=== PATIENT | male | born 1980 | race Caucasian/White ===

== ENCOUNTER 2018-08-05 19:29 | Observation (INO) ==
--- NOTE | 2018-08-05 19:48 | ED ---
HPI General Chief complaint: Altered Mental Status Stated complaint: Confused - ETOH Time Seen by Provider: 08/05/18 19:45 History of Present Illness HPI narrative: 38-year-old male is brought to the emergency department by EMS for evaluation of altered mental status and hypoglycemia. Per EMS report [place] Per EMS report the patient's glucose was 57 on arrival and he was administered 25 g of dextrose which brought his sugar up to 215. Per EMS report the patient became more awake after the dextrose. The patient does smell of mint. He is arousable but drowsy. He admits to drinking a large amount of Listerine earlier today. He complains of pain "all over." He denies any falls or head trauma. He states that he smokes cigarettes but denies any drug use. He denies any chest pain, shortness of breath, belly pain, nausea, vomiting, diarrhea. No other complaints. Related Data Home Medications Medication Instructions Recorded Confirmed No Known Home Medications 08/05/18 08/05/18 Allergies Allergy/AdvReac Type Severity Reaction Status Date / Time No Known Allergies Allergy Verified 08/05/18 19:42 Review of Systems ROS: all other systems reviewed are negative [facility] Medical History Medical History Bipolar 1 disorder (Acute) Bleeding hemorrhoids (Acute) Esophageal varices (Acute) Schizophrenia (Acute) Surgical History Surgical History No history of previous surgery (Acute) Family History Family History Other Family history non-contributory Social History Social History Substance History: Active Abuse Second Hand Smoke Exposure: Yes Smoking Status: Current every day smoker Tobacco Type: Cigarettes How Often Do You Have a Drink Containing Alcohol: 4 or more times a week Recent Travel in [place] within the Last 8 Weeks: No Recent Out of Country Travel within the Last 8 Weeks: No Immunization History Tetanus Immunization: Unsure Exam Narrative Exam Narrative: GENERAL: Well-nourished and well-developed male patient in no acute distress. SKIN: Warm and dry without any obvious rashes or lesions. HEAD: Normocephalic and atraumatic. EYES: No injection, drainage, or hyphema noted. PERRLA. EOMI. ENT: No nasal drainage noted. Oropharynx is clear and the TMs are normal with good landmarks. NECK: Supple and the trachea is midline. No obviou deformities or midline tenderness to palpation. CARDIOVASCULAR: Regular rate and rhythm. RESPIRATORY: Breath sounds are equal bilaterally with no accessory muscle use, wheezing, rhonchi, or crackles. GASTROINTESTINAL: Abdomen is soft, non-tender, and nondistended. MUSCULOSKELETAL: No obvious deformities, swelling, cyanosis, or ecchymosis is present throughout the upper and lower extremities. Patient has full range of motion without any signs of neurovascular compromise. Distal pulses are 2+ throughout. NEUROLOGICAL: Drowsy but arousable, and oriented to person and place only. Slurred speech. Cranial nerves are grossly intact. Course Initial Documented Vital Signs Temperature 97.9 F 08/05/18 19:36 Pulse Rate 100 H 08/05/18 19:36 Respiratory Rate 16 08/05/18 19:36 Blood Pressure 143/95 H 08/05/18 19:36 Pulse Oximetry 95 08/05/18 19:36 Last Documented Vital Signs Temperature 99.1 F 08/06/18 11:38 Pulse Rate 117 H 08/06/18 11:38 Respiratory Rate 16 08/06/18 11:38 Blood Pressure 120/68 08/06/18 11:38 Pulse Oximetry 94 L 08/06/18 11:38 Medical Decision Making YASMIN Attestation YASMIN supervised visit: Yes Attestation: I, Dr. Eddy, have reviewed the advance practice practitioner's documentation and am in agreement, met with the patient face to face, made the diagnosis, and the medical decision making was done by me. The patient was initially evaluated by Gabriela, the YASMIN. Please see their complete history and physical. *My assessment and Findings: The patient presents with altered mentation and hypoglycemia. The patient has an odor of alcohol and appears to be intoxicated with alcohol. The patient has no prior history of diabetes. During the course of the patient's emergency department visit, the patient's history, examination, and differential diagnosis were reviewed with the patient. The patient was placed on a director of cardiac rehabilitation with oximetry and frequent blood pressure monitoring. The patient had IV access obtained and blood work sent for analysis. The patient was initially provided 25 g of dextrose by ambulance services prior to arrival. Patient was provided orange juice and a snack on arrival. The patient's blood pressure decreased down into the 90s systolic and was given normal saline 1 L IV fluid bolus. The patient's diagnostic studies were reviewed and remarkable for A white count of 6.4, hemoglobin 13.9, platelets 323, monocytes 9.3, chemistry is remarkable for a potassium of 3.4, chloride 108, BUN 6, glucose 119, plasma osmolality 411 , troponin I less than 0.02. Urinalysis showed no acute abnormality, urine osmolality 370 urine drug screen is positive for benzodiazepines, alcohol level 438. CT scan of the head and neck showed no acute abnormality, chest x-ray showed no acute abnormality. The patient developed recurrent hypoglycemia and required placement on IV fluids containing dextrose. Due to the patient having recurrent hypoglycemia with altered mentation, the patient will be admitted to the hospitalist service for continued evaluation with observation for improvement in his mentation is alcohol level comes down. The patient's case was D/W Dr. Pineda who agreed to admit the patient to the [facility] service. The patient's results were discussed with the patient, including the plan of care. I explained that further testing and/ or monitoring is indicated based on the patient's history, examination, and/ or laboratory findings. Therefore, I recommended admission for additional evaluation. The patient expressed understanding and was agreeable with this plan. The patient was admitted to the hospital in stable condition and sent to a bed under the care of the [facility] service. [facility] Narrative Medical decision making narrative: 38-year-old male is brought by EMS for evaluation of AMS, alcohol intoxication and hypoglycemia. IV access is obtained , labs have been drawn and sent. Patient placed on cardiac telemetry and pulse oximetry monitoring. Patient's glucose has already dropped back to 120 now. Patient given orange juice orally to maintain his glucose. CBC is negative for any acute abnormalities. CMP shows mild hypokalemia with potassium of 3.4. Glucose 119. Calcium is decreased at 7.5. Troponin is less than 0.02. EtOH is 438. Chest x-ray is negative. CT of the cervical spine is negative. Head CT is negative. Patient's blood pressure decreased to 88/56 here in the ED, improved with arousing him and with IV fluids. Now 121/72. Patient to be observed here in the ED until he is noted to be clinically sober. Signed out to my attending physician Dr. Eddy who will monitor patient and reevaluated prior to discharge. Medical Screen Exam Complete: Yes Emergency Medical Condition: Yes Differential Diagnosis Differential Diagnosis: Alcohol intoxication versus electrolyte abnormality versus dehydration versus head injury Lab Data Result diagrams: 08/05/18 19:50 08/06/18 11:04 Lab Results 08/05/18 08/05/18 08/05/18 Range/Units 19:39 19:50 19:50 WBC 6.4 (4.0-11.0) th/mm3 RBC 3.91 L (4.50-5.90) mil/mm3 Hgb 13.9 (13.0-17.0) gm/dL Hct 37.6 L (39.0-51.0) % MCV 96.2 (80.0-100.0) fL MCH 35.6 H (27.0-34.0) pg MCHC 37.0 H (32.0-36.0) % RDW 17.6 H (11.6-17.2) % Plt Count 323 D (150-450) th/mm3 MPV 6.4 L (7.0-11.0) fL Prelim Diff (Auto) Slide review pending Neut % (Auto) 49.8 (16.0-70.0) % Lymph % (Auto) 34.5 (9.0-44.0) % [place] % (Auto) 9.3 H (0.0-8.0) % Eos % (Auto) 2.6 (0.0-4.0) % Baso % (Auto) 3.8 H (0.0-2.0) % Neut # (Auto) 3.2 (1.8-7.7) th/mm3 Lymph # (Auto) 2.2 (1.0-4.8) th/mm3 [place] # (Auto) 0.6 (0.0-0.9) th/mm3 Eos # (Auto) 0.2 (0.0-0.4) th/mm3 Baso # (Auto) 0.2 (0.0-0.2) th/mm3 WBC Differential . Diff Scan Auto diff confirmed Differential Comment . Sodium 144 (136-145) meq/L Potassium 3.4 L (3.5-5.1) meq/L Chloride 108 H (98-107) meq/L Carbon Dioxide 25.7 (21.0-32.0) meq/L Anion Gap 10 (5-15) meq/L BUN 6 L (7-18) mg/dL Creatinine 0.93 (0.60-1.30) mg/dL Estimated GFR Greater than 89 (>89) mL/min POC Glucose 123 H (68-110) mg/dl Random Glucose 119 H (74-106) mg/dL Osmolality 411 H (275-295) mosm/kg Calcium 7.5 L (8.5-10.1) mg/dL Magnesium 2.0 (1.5-2.5) mg/dL Total Bilirubin 0.3 (0.2-1.0) mg/dL AST 32 (15-37) U/L ALT 37 (12-78) U/L Alkaline Phosphatase 88 (45-117) U/L Troponin I Less than 0.02 L (0.02-0.05) ng/mL Total Protein 6.8 (6.4-8.2) g/dL Albumin 3.6 (3.4-5.0) g/dL Urine Color (Yellw/Straw) Urine Clarity (Clear) Urine pH (5.0-8.5) Ur Specific [place] (1.002-1.035) Urine Protein (Neg-Trace) mg/dL Urine Glucose (UA) (Negative) mg/dL Urine Ketones (Negative) mg/dL Urine Occult Blood (Negative) Urine Nitrate (Negative) Urine Bilirubin (Negative) Urine Urobilinogen (Less than 2) mg/dL Ur Leukocyte Esterase (Negative) Urine WBC (0-5) /hpf Hyaline Casts (0-3) /lpf Urine Mucus (Occasional) /lpf Micro UA Comment Ur Microscopic Review Urine Culture Comments Urine Osmolality (300-1300) mosm/kg Urine Opiates Screen (Neg) Ur Barbiturates Screen (Neg) Ur Amphetamines Screen (Neg) U Benzodiazepines Scrn (Neg) Urine Cocaine Screen (Neg) U Cannabinoids Screen (Neg) Serum Alcohol 438 H (0-5) mg/dL 08/05/18 08/05/18 08/06/18 Range/Units 20:46 21:40 00:35 WBC (4.0-11.0) th/mm3 RBC (4.50-5.90) mil/mm3 Hgb (13.0-17.0) gm/dL Hct (39.0-51.0) % MCV (80.0-100.0) fL MCH (27.0-34.0) pg MCHC (32.0-36.0) % RDW (11.6-17.2) % Plt Count (150-450) th/mm3 MPV (7.0-11.0) fL Prelim Diff (Auto) Neut % (Auto) (16.0-70.0) % Lymph % (Auto) (9.0-44.0) % [place] % (Auto) (0.0-8.0) % Eos % (Auto) (0.0-4.0) % Baso % (Auto) (0.0-2.0) % Neut # (Auto) (1.8-7.7) th/mm3 Lymph # (Auto) (1.0-4.8) th/mm3 [place] # (Auto) (0.0-0.9) th/mm3 Eos # (Auto) (0.0-0.4) th/mm3 Baso # (Auto) (0.0-0.2) th/mm3 WBC Differential Diff Scan Differential Comment Sodium (136-145) meq/L Potassium (3.5-5.1) meq/L Chloride (98-107) meq/L Carbon Dioxide (21.0-32.0) meq/L Anion Gap (5-15) meq/L BUN (7-18) mg/dL Creatinine (0.60-1.30) mg/dL Estimated GFR (>89) mL/min POC Glucose 109 101 (68-110) mg/dl Random Glucose 63 L (74-106) mg/dL Osmolality (275-295) mosm/kg Calcium (8.5-10.1) mg/dL Magnesium (1.5-2.5) mg/dL Total Bilirubin (0.2-1.0) mg/dL AST (15-37) U/L ALT (12-78) U/L Alkaline Phosphatase (45-117) U/L Troponin I (0.02-0.05) ng/mL Total Protein (6.4-8.2) g/dL Albumin (3.4-5.0) g/dL Urine Color (Yellw/Straw) Urine Clarity (Clear) Urine pH (5.0-8.5) Ur Specific [place] (1.002-1.035) Urine Protein (Neg-Trace) mg/dL Urine Glucose (UA) (Negative) mg/dL Urine Ketones (Negative) mg/dL Urine Occult Blood (Negative) Urine Nitrate (Negative) Urine Bilirubin (Negative) Urine Urobilinogen (Less than 2) mg/dL Ur Leukocyte Esterase (Negative) Urine WBC (0-5) /hpf Hyaline Casts (0-3) /lpf Urine Mucus (Occasional) /lpf Micro UA Comment Ur Microscopic Review Urine Culture Comments Urine Osmolality (300-1300) mosm/kg Urine Opiates Screen (Neg) Ur Barbiturates Screen (Neg) Ur Amphetamines Screen (Neg) U Benzodiazepines Scrn (Neg) Urine Cocaine Screen (Neg) U Cannabinoids Screen (Neg) Serum Alcohol (0-5) mg/dL 08/06/18 08/06/18 08/06/18 Range/Units 01:40 05:56 05:56 WBC (4.0-11.0) th/mm3 RBC (4.50-5.90) mil/mm3 Hgb (13.0-17.0) gm/dL Hct (39.0-51.0) % MCV (80.0-100.0) fL MCH (27.0-34.0) pg MCHC (32.0-36.0) % RDW (11.6-17.2) % Plt Count (150-450) th/mm3 MPV (7.0-11.0) fL Prelim Diff (Auto) Neut % (Auto) (16.0-70.0) % Lymph % (Auto) (9.0-44.0) % [place] % (Auto) (0.0-8.0) % Eos % (Auto) (0.0-4.0) % Baso % (Auto) (0.0-2.0) % Neut # (Auto) (1.8-7.7) th/mm3 Lymph # (Auto) (1.0-4.8) th/mm3 [place] # (Auto) (0.0-0.9) th/mm3 Eos # (Auto) (0.0-0.4) th/mm3 Baso # (Auto) (0.0-0.2) th/mm3 WBC Differential Diff Scan Differential Comment Sodium (136-145) meq/L Potassium (3.5-5.1) meq/L Chloride (98-107) meq/L Carbon Dioxide (21.0-32.0) meq/L Anion Gap (5-15) meq/L BUN (7-18) mg/dL Creatinine (0.60-1.30) mg/dL Estimated GFR (>89) mL/min POC Glucose (68-110) mg/dl Random Glucose (74-106) mg/dL Osmolality 374 H (275-295) mosm/kg Calcium (8.5-10.1) mg/dL Magnesium (1.5-2.5) mg/dL Total Bilirubin (0.2-1.0) mg/dL AST (15-37) U/L ALT (12-78) U/L Alkaline Phosphatase (45-117) U/L Troponin I (0.02-0.05) ng/mL Total Protein (6.4-8.2) g/dL Albumin (3.4-5.0) g/dL Urine Color (Yellw/Straw) Urine Clarity (Clear) Urine pH (5.0-8.5) Ur Specific [place] (1.002-1.035) Urine Protein (Neg-Trace) mg/dL Urine Glucose (UA) (Negative) mg/dL Urine Ketones (Negative) mg/dL Urine Occult Blood (Negative) Urine Nitrate (Negative) Urine Bilirubin (Negative) Urine Urobilinogen (Less than 2) mg/dL Ur Leukocyte Esterase (Negative) Urine WBC (0-5) /hpf Hyaline Casts (0-3) /lpf Urine Mucus (Occasional) /lpf Micro UA Comment Ur Microscopic Review Urine Culture Comments Urine Osmolality 379 (300-1300) mosm/kg Urine Opiates Screen Neg (Neg) Ur Barbiturates Screen Neg (Neg) Ur Amphetamines Screen Neg (Neg) U Benzodiazepines Scrn Pos H (Neg) Urine Cocaine Screen Neg (Neg) U Cannabinoids Screen Neg (Neg) Serum Alcohol (0-5) mg/dL 08/06/18 08/06/18 08/06/18 Range/Units 05:56 08:52 11:04 WBC (4.0-11.0) th/mm3 RBC (4.50-5.90) mil/mm3 Hgb (13.0-17.0) gm/dL Hct (39.0-51.0) % MCV (80.0-100.0) fL MCH (27.0-34.0) pg MCHC (32.0-36.0) % RDW (11.6-17.2) % Plt Count (150-450) th/mm3 MPV (7.0-11.0) fL Prelim Diff (Auto) Neut % (Auto) (16.0-70.0) % Lymph % (Auto) (9.0-44.0) % [place] % (Auto) (0.0-8.0) % Eos % (Auto) (0.0-4.0) % Baso % (Auto) (0.0-2.0) % Neut # (Auto) (1.8-7.7) th/mm3 Lymph # (Auto) (1.0-4.8) th/mm3 [place] # (Auto) (0.0-0.9) th/mm3 Eos # (Auto) (0.0-0.4) th/mm3 Baso # (Auto) (0.0-0.2) th/mm3 WBC Differential Diff Scan Differential Comment Sodium 143 (136-145) meq/L Potassium 3.9 (3.5-5.1) meq/L Chloride 106 (98-107) meq/L Carbon Dioxide 30.5 (21.0-32.0) meq/L Anion Gap 7 (5-15) meq/L BUN 5 L (7-18) mg/dL Creatinine 0.79 (0.60-1.30) mg/dL Estimated GFR Greater than 89 (>89) mL/min POC Glucose 89 (68-110) mg/dl Random Glucose 86 (74-106) mg/dL Osmolality (275-295) mosm/kg Calcium 7.8 L (8.5-10.1) mg/dL Magnesium (1.5-2.5) mg/dL Total Bilirubin 0.4 (0.2-1.0) mg/dL AST 28 (15-37) U/L ALT 31 (12-78) U/L Alkaline Phosphatase 83 (45-117) U/L Troponin I (0.02-0.05) ng/mL Total Protein 5.6 L D (6.4-8.2) g/dL Albumin 3.0 L D (3.4-5.0) g/dL Urine Color Straw (Yellw/Straw) Urine Clarity Clear (Clear) Urine pH 5.0 (5.0-8.5) Ur Specific [place] 1.008 (1.002-1.035) Urine Protein Negative (Neg-Trace) mg/dL Urine Glucose (UA) Negative (Negative) mg/dL Urine Ketones Negative (Negative) mg/dL Urine Occult Blood Negative (Negative) Urine Nitrate Negative (Negative) Urine Bilirubin Negative (Negative) Urine Urobilinogen Less than 2 (Less than 2) mg/dL Ur Leukocyte Esterase Negative (Negative) Urine WBC 1 (0-5) /hpf Hyaline Casts 3 (0-3) /lpf Urine Mucus Few H (Occasional) /lpf Micro UA Comment Culture not ind Ur Microscopic Review Not Reportable Urine Culture Comments Culture not ind Urine Osmolality (300-1300) mosm/kg Urine Opiates Screen (Neg) Ur Barbiturates Screen (Neg) Ur Amphetamines Screen (Neg) U Benzodiazepines Scrn (Neg) Urine Cocaine Screen (Neg) U Cannabinoids Screen (Neg) Serum Alcohol (0-5) mg/dL Imaging Data Radiologist's impression: Cervical Spine CT 08/05/18 19:45 CONCLUSION: 1. Negative CT Cervical Spine non contrast. Chest X-Ray 08/05/18 19:45 CONCLUSION: No acute cardiopulmonary disease demonstrated. Head CT 08/05/18 19:45 CONCLUSION: 1. Negative CT Head non contrast. . Discharge Plan Discharge Disposition Patient Disposition: 30 Still Patient Discharge Condition Condition: Stable Discharge Order Discharge Orders: Discharge Order (Routine); Ordered 08/06/18 Ordered By: Lloyd Biggs Discharge Details Discharge Comment: Patient is advised to go directly to [facility] for rehab and to continue care for psychiatric issues. Diagnosis: Alcohol intoxication, Hypoglycemia Physicians Team ED Provider: Ester Eddy ED Midlevel Provider: Gabriela Green Primary Care Provider: Primary Care Reina Grant Attending Provider: Lloyd Biggs Discharge Interventions Interventions: ED Discharge Assessment Last Done: 08/06/18 02:38 Status ED Status: Left Department Discharge Information Discharge Date/Time: 08/06/18 02:39
--- NOTE | 2018-08-05 20:08 | XR ---
EXAM DATE: 08/05/2018 8:04 PM EST AGE/SEX: 38 years / Male INDICATIONS: Cough. CLINICAL DATA: This is the patient's initial encounter. Patient reports that signs and symptoms have been present for 1 day and indicates a pain score of 10/10. MEDICAL/SURGICAL HISTORY: Non-responsive. Non-responsive. COMPARISON: [facility] [place] & PELVIS W CONTRAST, 07/26/2018. . FINDINGS: A single AP view of the chest demonstrates the lungs to be symmetrically aerated without evidence of mass, infiltrate or effusion. The cardiomediastinal contours are unremarkable. Osseous structures a re intact. CONCLUSION: No acute cardiopulmonary disease demonstrated. Electronically signed by: Niels Garcia MD 08/05/2018 8:06 PM EST
[2018-08-05] MEDS ORDERED: Sod Chloride 0.9% Inj 1,000 ML IV.SIG SCH ×2 (20:15→22:00)
[2018-08-05 20:26] LABS: Baso # (Auto) 0.2 th/mm3 (0.0-0.2); Baso % (Auto) 3.8 % (0.0-2.0); Eos # (Auto) 0.2 th/mm3 (0.0-0.4); Eos % (Auto) 2.6 % (0.0-4.0); Hematocrit 37.6 % (39.0-51.0); Hemoglobin 13.9 gm/dL (13.0-17.0); Lymph # (Auto) 2.2 th/mm3 (1.0-4.8); Lymph % (Auto) 34.5 % (9.0-44.0); Mean Corpuscular Hemoglobin 35.6 pg (27.0-34.0); Mean Corpuscular Volume 96.2 fL (80.0-100.0); Mean Platelet Volume 6.4 fL (7.0-11.0); Mono # (Auto) 0.6 th/mm3 (0.0-0.9); Mono % (Auto) 9.3 % (0.0-8.0); Neut # (Auto) 3.2 th/mm3 (1.8-7.7); Neut % (Auto) 49.8 % (16.0-70.0); Platelet Count 323 th/mm3 (150-450); Red Blood Count 3.91 mil/mm3 (4.50-5.90); Red Cell Distribution Width 17.6 % (11.6-17.2); White Blood Count 6.4 th/mm3 (4.0-11.0)
[2018-08-05 20:31] LABS: Albumin 3.6 g/dL (3.4-5.0); Anion Gap 10 meq/L (5-15); Aspartate Aminotransferase 32 U/L (15-37); Blood Urea Nitrogen 6 mg/dL (7-18); Calcium 7.5 mg/dL (8.5-10.1); Carbon Dioxide 25.7 meq/L (21.0-32.0); Chloride 108 meq/L (98-107); Glomerular Filtration Rate Greater Than 89 mL/min (>89); Glucose,Random 119 mg/dL (74-106); Potassium 3.4 meq/L (3.5-5.1); Sodium 144 meq/L (136-145)
--- NOTE | 2018-08-05 20:32 | CT ---
EXAM DATE: 08/05/2018 8:29 PM EST AGE/SEX: 38 years / Male INDICATIONS: Altered mental status, found unresponsive, possible fall. CLINICAL DATA: This is the patient's initial encounter. Patient reports that signs and symptoms have been present for 1 day and indicates a pain score of Nonresponsive. MEDICAL/SURGICAL HISTORY: Non-responsive. Non-responsive. RADIATION DOSE: 36.94 CTDI (mGy) ; Patient motion COMPARISON: No prior exams available for comparison. TECHNIQUE: CT of the head without contrast. Using automated exposure control and adjustment of the mA and/or kV according to patient size, radiation dose was kept as low as reasonably achievable to ob tain optimal diagnostic quality images. DICOM format image data is available electronically for revi ew and comparison. FINDINGS: Cerebrum: The ventricles are normal for age. No evidence of midline shift, mass lesion, hemorrhage or acute infarction. No extraaxial fluid collections are seen. Posterior Fossa: The cerebellum and brainstem are intact. The 4th ventricle is midline. The cerebe llopontine angle is unremarkable. Extracranial: The visualized portion of the orbits is intact. Skull: The calvaria is intact. No evidence of skull fracture. CONCLUSION: 1. Negative CT Head non contrast. . Electronically signed by: Arsalan Cantu MD 08/05/2018 8:30 PM EST
--- NOTE | 2018-08-05 20:35 | CT ---
EXAM DATE: 08/05/2018 8:31 PM EST AGE/SEX: 38 years / Male INDICATIONS: Altered mental status, found unresponsive, possible fall. CLINICAL DATA: This is the patient's initial encounter. Patient reports that signs and symptoms have been present for 1 day and indicates a pain score of Nonresponsive. MEDICAL/SURGICAL HISTORY: Non-responsive. Non-responsive. RADIATION DOSE: 19.34 CTDI (mGy) COMPARISON: No prior exams available for comparison. TECHNIQUE: Contiguous axial images were obtained using helical multirow detector technique. The vol umetric data was post-processed with multiplanar reconstruction in oblique axial, sagittal, and coron al planes. Using automated exposure control and adjustment of the mA and/or kV according to patient s ize, radiation dose was kept as low as reasonably achievable to obtain optimal diagnostic quality thais ges. DICOM format image data is available electronically for review and comparison. FINDINGS: Vertebrae: Normal vertebral body height. Alignment: Normal. No subluxation. C2-3: The bony spinal canal is normal in size. No evidence of disc bulge or herniation. The neural foramina are bilaterally patent. C3-4: The bony spinal canal is normal in size. No evidence of disc bulge or herniation. The neural foramina are bilaterally patent. C4-5: The bony spinal canal is normal in size. No evidence of disc bulge or herniation. The neural foramina are bilaterally patent. C5-6: The bony spinal canal is normal in size. No evidence of disc bulge or herniation. The neural foramina are bilaterally patent. C6-7: The bony spinal canal is normal in size. No evidence of disc bulge or herniation. The neural foramina are bilaterally patent. C7-T1: The bony spinal canal is normal in size. No evidence of disc bulge or herniation. The neura l foramina are bilaterally patent. CONCLUSION: 1. Negative CT Cervical Spine non contrast. Electronically signed by: Arsalan Cantu MD 08/05/2018 8:33 PM EST
[2018-08-05 20:36] LABS: Alanine Aminotransferase 37 U/L (12-78); Alkaline Phosphatase 88 U/L (45-117); Total Protein 6.8 g/dL (6.4-8.2)
[2018-08-05 20:41] LABS: Alcohol 438 mg/dL (0-5)
[2018-08-06] MEDS ORDERED: Bisacodyl 10 MG Supp RECTAL PRN (01:11)
[2018-08-06] MEDS ORDERED: Thiamine Inj 100 MG in Sodium Chlor 0.9% Inj 100 ML IV.SIG ONE (01:15)
[2018-08-06] MEDS ORDERED: Potassium Chlor 20 mEq Premix 20 MEQ/100 ML PIGGYBACK IV.SIG ONE (01:16)
[2018-08-06] MEDS: Dextrose 5%/NaCl 0.9% Inj 1,000 ML IV.CONT SCH ×2 (01:17→12:20)
[2018-08-06] MEDS ORDERED: Sodium Chloride 0.9% 2 ML Flush PRN IV.FLUSH (01:19)
[2018-08-06] MEDS ORDERED: LORazepam 1 MG Tablet PO PRN (01:38)
[2018-08-06] MEDS ORDERED: Haloperidol Inj 5 MG/ML Ampul IV.PUSH PRN (01:38)
--- NOTE | 2018-08-06 01:38 | P.HPIM ---
History of Present Illness Primary Care Physician: No Primary Care Physician History of Present Illness: 38-year-old male with a history of alcohol lithium, alcohol withdrawal seizures , ADD, who is brought in secondary to altered mental status, being [place] unconscious [place] library. Serum alcohol 438 on admission. Patient smells like mint and says he was drinking Listerine. Patient was found to be hyperglycemic with sugars in the 60s, and now has dextrose running. History is limited secondary to alcohol intoxication. Patient denies any chest pain, shortness of breath, nausea, vomiting. He is asking to eat. Review of Systems All other systems reviewed negative except as stated in HPI PMFSH - History History Provided By: Patient - Medical History Medical History: Medical History (Last Reviewed 08/06/18 @ 01:31 by Chandra Pineda MD) Bipolar 1 disorder Bleeding hemorrhoids Esophageal varices Schizophrenia - Surgical History Surgical History: Surgical History (Last Updated 08/06/18 @ 01:32 by Chandra Pineda MD) No history of previous surgery - Family History Family History: Family History (Last Updated 08/06/18 @ 01:32 by Chandra Pineda MD) Other Family history non-contributory - Tobacco History Second Hand Smoke Exposure: Yes Tobacco Use In Past 30 Days: Yes Smoking Status: Current every day smoker Tobacco Type: Cigarettes - Alcohol History How Often Do You Have a Drink Containing Alcohol: 4 or more times a week - Substance Use History Substance History: Active Abuse - Travel History Recent Travel in the [place] Within the Last 8 Weeks: No Recent Travel Out of the Country Within the Last 8 Weeks: No - Immunization History Tetanus Immunization: Unsure Medications and Allergies Active Medications: Active Medications Al Hydroxide/Mg Hydroxide (Milk Of Grey Lijoaquim) 30 ml PO Q12H PRN PRN Reason: Mild Constipation Bisacodyl (Dulcolax Supp) 10 mg RECTAL DAILY PRN PRN Reason: SEVERE CONSITIPATION Dextrose/Sodium Chloride (D5w/Normal Saline Inj) 1,000 mls @ 100 mls/hr IV.CONT .Q10H [facility] Last Admin: 08/06/18 01:17 Dose: 100 mls/hr Thiamine HCl 100 mg/ Sodium (Chloride) 101 mls @ 100 mls/hr IV.SIG ONCE ONE Stop: 08/06/18 02:15 Potassium Chloride (Kcl 20 Meq Premix Inj) 20 meq in 100 mls @ 50 mls/hr IV.SIG ONCE ONE Stop: 08/06/18 03:15 Lactulose (Lactulose Liq) 30 ml PO DAILY PRN PRN Reason: SEVERE CONSITIPATION Sennosides (Senokot) 17.2 mg PO Q12H PRN PRN Reason: Moderate Constipation Sodium Chloride (Ns Flush) 2 ml IV.FLUSH BID [facility] Sodium Chloride (Ns Flush) 2 ml IV.FLUSH PRN PRN PRN Reason: FLUSH AFTER USING IV ACCESS Allergies Allergy/AdvReac Type Severity Reaction Status Date / Time No Known Allergies Allergy Verified 08/05/18 19:42 Home Medications Medication Instructions Recorded Confirmed Type No Known Home Medications 08/05/18 08/05/18 History Exam Vital signs: Vital Signs 08/05/18 19:36 08/05/18 20:45 08/05/18 22:00 Temperature 97.9 F Pulse Rate 100 H 95 H 90 Respiratory Rate 16 16 18 Blood Pressure 143/95 H 100/52 L 121/72 Pulse Oximetry 95 97 97 08/05/18 23:00 Temperature Pulse Rate 82 Respiratory Rate 16 Blood Pressure 109/60 Pulse Oximetry 95 Intake & Output 08/05/18 08/05/18 08/06/18 06:59 18:59 06:59 Intake Total 1999 Balance 1999 Weight 81.647 kg Intake: IV 1999 NS Inj 1,000 ML @ 1000 mls/hr 1999 IV.SIG BOLUS [facility] Rx#:[id number] Narrative: GENERAL: Patient sleeping, wakes up for exam. He is somnolent, disoriented to location as he asked where he is, oriented to person, date however. SKIN: Warm and dry. HEAD: Atraumatic. Normocephalic. EYES: Pupils equal and round. No scleral icterus. No injection or drainage. ENT: No nasal bleeding or discharge. Mucous membranes pink and moist. NECK: Trachea midline. No JVD. CARDIOVASCULAR: Regular rate and rhythm. RESPIRATORY: No accessory muscle use. Clear to auscultation. Breath sounds equal bilaterally. GASTROINTESTINAL: Abdomen soft, non-tender, nondistended. Hepatic and splenic margins not palpable. MUSCULOSKELETAL: Extremities without clubbing, cyanosis, or edema. No obvious deformities. NEUROLOGICAL: Awake and alert. No obvious cranial nerve deficits. Motor grossly within normal limits. Five out of 5 muscle strength in the arms and legs. Normal speech. PSYCHIATRIC: Appropriate mood and affect; insight and judgment normal. Results - Labs CBC & Chem 7: 08/05/18 19:50 08/06/18 00:35 Labs: Short CBC 08/05/18 Range/Units 19:50 WBC 6.4 (4.0-11.0) th/mm3 Hgb 13.9 (13.0-17.0) gm/dL Hct 37.6 L (39.0-51.0) % Plt Count 323 D (150-450) th/mm3 BMP 08/05/18 19:50 Sodium 144 Potassium 3.4 L Chloride 108 H Carbon Dioxide 25.7 BUN 6 L Creatinine 0.93 Calcium 7.5 L Cardiac Enzymes 08/05/18 Range/Units 19:50 Troponin I Less than 0.02 L (0.02-0.05) ng/mL Liver Function 08/05/18 Range/Units 19:50 Total Bilirubin 0.3 (0.2-1.0) mg/dL AST 32 (15-37) U/L ALT 37 (12-78) U/L Alkaline Phosphatase 88 (45-117) U/L Albumin 3.6 (3.4-5.0) g/dL - Imaging Impressions Cervical Spine CT 08/05/18 19:45 CONCLUSION: 1. Negative CT Cervical Spine non contrast. Chest X-Ray 08/05/18 19:45 CONCLUSION: No acute cardiopulmonary disease demonstrated. Head CT 08/05/18 19:45 CONCLUSION: 1. Negative CT Head non contrast. . Caprini VTE Risk Assessment Caprini VTE Risk Assessment: No/Low Risk (score <= 1) Caprini Risk Assessment Model: Point Value = 1 Point Value = 2 Point Value = 3 Point Value = 5 Age 41-60 Minor surgery BMI > 25 kg/m2 Swollen legs Varicose veins or History of unexplained or recurrent spontaneous Oral contraceptives or hormone replacement Sepsis (< 1 month) Serious lung disease, including pneumonia (< 1 month) Abnormal pulmonary function Acute myocardial infarction Congestive heart failure (< 1 month) History of inflammatory bowel disease Medical patient at bed rest Age 61-74 Arthroscopic surgery Major open surgery (> 45 min) Laparoscopic surgery (> 45 min) Malignancy Confined to bed (> 72 hours) Immobilizing plaster cast Central venous access Age >= 75 History of VTE Family history of VTE Factor V Leiden Prothrombin [id number] Lupus anticoagulant Anticardiolipin antibodies Elevated serum homocysteine Heparin-induced thrombocytopenia Other congenital or acquired thrombophilia Stroke (< 1 month) Elective arthroplasty Hip, pelvis, or leg fracture Acute spinal cord injury (< 1 month) Prophylaxis Regimen: Total Risk Factor Score Risk Level Prophylaxis Regimen 0-1 Low Early ambulation 2 Moderate Order ONE of the following: *Sequential Compression Device (SCD) *Heparin 5000 units SQ BID 3-4 Higher Order ONE of the following medications: *Heparin 5000 units SQ TID *Enoxaparin/Lovenox 40 mg SQ daily (WT < 150 kg, CrCl > 30 mL/min) *Enoxaparin/Lovenox 30 mg SQ daily (WT < 150 kg, CrCl > 10-29 mL/min) *Enoxaparin/Lovenox 30 mg SQ BID (WT < 150 kg, CrCl > 30 mL/min) AND/OR *Sequential Compression Device (SCD) 5 or more Highest Order ONE of the following medications: *Heparin 5000 units SQ TID (Preferred with Epidurals) *Enoxaparin/Lovenox 40 mg SQ daily (WT < 150 kg, CrCl > 30 mL/min) *Enoxaparin/Lovenox 30 mg SQ daily (WT < 150 kg, CrCl > 10-29 mL/min) *Enoxaparin/Lovenox 30 mg SQ BID (WT < 150 kg, CrCl > 30 mL/min) AND *Sequential Compression Device (SCD) Assessment and Plan - Plan //Hypoglycemia with glucose in the 60s. -Started on glucose drip. Appears to be protecting airway, will allow to eat. //Hyperosmolality. Osmolality 411, which is extremely high, and really does not make sense even with alcohol intoxication. Will recheck. //Hypokalemia. 3.4. Replace. //Acute alcohol intoxication. //Chronic alcoholism Alcohol level above 400. IV fluids. Monitor. Thiamine given. Will order CIWA protocol. //Reported history of bipolar disease on ED questioning. Patient denies any history of bipolar. //Reported history of esophageal varices and bleeding hemorrhoids. Patient denies this, however can repeat history when more alert. //Tobacco abuse. Cessation counseling will have to be discussed with patient is more alert. Discussed Condition With: Patient, nurse, ED physician. Discharge Planning: Hopefully can go home later today if stable. Patient is homeless. He is from [place]. Will need referral to primary care doctor. He says he is supposed to be on medications but is not sure what these are.
[2018-08-06 06:11] LABS: Bilirubin,Urine Negative (Negative); Clarity,Urine Clear (Clear); Color,Urine Straw (Yellw/Straw); Glucose,Urine (UA) Negative (Negative); Hyaline Casts,Urine 3 /lpf (0-3); Leukocyte Esterase,Urine Negative (Negative); Mucus,Urine Few /lpf (Occasional); Nitrite,Urine Negative (Negative); Specific Gravity,Urine 1.008 (1.002-1.035)
[2018-08-06 06:14] LABS: Amphetamine Screen,Urine Neg (Neg); Barbiturate Screen,Urine Neg (Neg); Cannabinoid Screen,Urine Neg (Neg); Cocaine Screen,Urine Neg (Neg); Opiate Screen,Urine Neg (Neg)
[2018-08-06] MEDS ORDERED: Sodium Chloride 0.9% 2 ML Flush BID IV.FLUSH SCH (09:00)
--- NOTE | 2018-08-06 11:33 | P.PNIM ---
Physical Exam Vital signs: Vital Signs 08/05/18 19:36 08/05/18 20:45 08/05/18 22:00 Temperature 97.9 F Pulse Rate 100 H 95 H 90 Respiratory Rate 16 16 18 Blood Pressure 143/95 H 100/52 L 121/72 Pulse Oximetry 95 97 97 08/05/18 23:00 08/06/18 03:30 08/06/18 07:52 Temperature 98.3 F 98.6 F Pulse Rate 82 101 H 96 H Respiratory Rate 16 17 12 Blood Pressure 109/60 143/96 H 109/66 Pulse Oximetry 95 99 100 08/06/18 08:00 Temperature Pulse Rate Respiratory Rate Blood Pressure Pulse Oximetry 98 Intake & Output 08/05/18 08/06/18 08/06/18 18:59 06:59 18:59 Intake Total 3341 / 3341 0 / 0 Output Total 350 / 350 Balance 2991 / 2991 0 / 0 Weight 81.6 kg Intake: IV 2401 / 2401 0 / 0 D5W/Normal Saline Inj 1,000 ML 200 / 200 0 / 0 @ 100 mls/hr IV.CONT .Q10H [facility] Rx#:[id number] KCl 20 mEq Premix Inj 20 meq In 100 / 100 100 ml @ 50 mls/hr IV.SIG ONCE ONE Rx#:[id number] NS Inj 1,000 ML @ 1000 mls/hr 1999 / 1999 IV.SIG BOLUS [facility] Rx#:[id number] Thiamine Inj 100 MG In NS Inj 101 / 101 100 ML @ 100 mls/hr IV.SIG ONCE ONE Rx#:[id number] Oral 940 / 940 Output: Urine 350 / 350 Other: # Voids 1 Weight On Admission 81.6 kg Results - Labs CBC & Chem 7: 08/05/18 19:50 08/06/18 11:04 Laboratory Results - last 24 hr 08/05/18 08/05/18 08/05/18 19:39 19:50 19:50 WBC 6.4 RBC 3.91 L Hgb 13.9 Hct 37.6 L MCV 96.2 MCH 35.6 H MCHC 37.0 H RDW 17.6 H Plt Count 323 D MPV 6.4 L Prelim Diff (Auto) Slide review pending Neut % (Auto) 49.8 Lymph % (Auto) 34.5 Otero % (Auto) 9.3 H Eos % (Auto) 2.6 Baso % (Auto) 3.8 H Neut # (Auto) 3.2 Lymph # (Auto) 2.2 Otero # (Auto) 0.6 Eos # (Auto) 0.2 Baso # (Auto) 0.2 WBC Differential . Diff Scan Auto diff confirmed Differential Comment . Sodium 144 Potassium 3.4 L Chloride 108 H Carbon Dioxide 25.7 Anion Gap 10 BUN 6 L Creatinine 0.93 Estimated GFR Greater than 89 POC Glucose 123 H Random Glucose 119 H Osmolality 411 H Calcium 7.5 L Magnesium 2.0 Total Bilirubin 0.3 AST 32 ALT 37 Alkaline Phosphatase 88 Troponin I Less than 0.02 L Total Protein 6.8 Albumin 3.6 Urine Color Urine Clarity Urine pH Ur Specific [place] Urine Protein Urine Glucose (UA) Urine Ketones Urine Occult Blood Urine Nitrate Urine Bilirubin Urine Urobilinogen Ur Leukocyte Esterase Urine WBC Hyaline Casts Urine Mucus Micro UA Comment Ur Microscopic Review Urine Culture Comments Urine Osmolality Urine Opiates Screen Ur Barbiturates Screen Ur Amphetamines Screen U Benzodiazepines Scrn Urine Cocaine Screen U Cannabinoids Screen Serum Alcohol 438 H 08/05/18 08/05/18 08/06/18 20:46 21:40 00:35 WBC RBC Hgb Hct MCV MCH MCHC RDW Plt Count MPV Prelim Diff (Auto) Neut % (Auto) Lymph % (Auto) Otero % (Auto) Eos % (Auto) Baso % (Auto) Neut # (Auto) Lymph # (Auto) Otero # (Auto) Eos # (Auto) Baso # (Auto) WBC Differential Diff Scan Differential Comment Sodium Potassium Chloride Carbon Dioxide Anion Gap BUN Creatinine Estimated GFR POC Glucose 109 101 Random Glucose 63 L Osmolality Calcium Magnesium Total Bilirubin AST ALT Alkaline Phosphatase Troponin I Total Protein Albumin Urine Color Urine Clarity Urine pH Ur Specific [place] Urine Protein Urine Glucose (UA) Urine Ketones Urine Occult Blood Urine Nitrate Urine Bilirubin Urine Urobilinogen Ur Leukocyte Esterase Urine WBC Hyaline Casts Urine Mucus Micro UA Comment Ur Microscopic Review Urine Culture Comments Urine Osmolality Urine Opiates Screen Ur Barbiturates Screen Ur Amphetamines Screen U Benzodiazepines Scrn Urine Cocaine Screen U Cannabinoids Screen Serum Alcohol 08/06/18 08/06/18 08/06/18 01:40 05:56 05:56 WBC RBC Hgb Hct MCV MCH MCHC RDW Plt Count MPV Prelim Diff (Auto) Neut % (Auto) Lymph % (Auto) [place] % (Auto) Eos % (Auto) Baso % (Auto) Neut # (Auto) Lymph # (Auto) [place]o # (Auto) Eos # (Auto) Baso # (Auto) WBC Differential Diff Scan Differential Comment Sodium Potassium Chloride Carbon Dioxide Anion Gap BUN Creatinine Estimated GFR POC Glucose Random Glucose Osmolality 374 H Calcium Magnesium Total Bilirubin AST ALT Alkaline Phosphatase Troponin I Total Protein Albumin Urine Color Urine Clarity Urine pH Ur Specific [place] Urine Protein Urine Glucose (UA) Urine Ketones Urine Occult Blood Urine Nitrate Urine Bilirubin Urine Urobilinogen Ur Leukocyte Esterase Urine WBC Hyaline Casts Urine Mucus Micro UA Comment Ur Microscopic Review Urine Culture Comments Urine Osmolality 379 Urine Opiates Screen Neg Ur Barbiturates Screen Neg Ur Amphetamines Screen Neg U Benzodiazepines Scrn Pos H Urine Cocaine Screen Neg U Cannabinoids Screen Neg Serum Alcohol 08/06/18 08/06/18 05:56 08:52 WBC RBC Hgb Hct MCV MCH MCHC RDW Plt Count MPV Prelim Diff (Auto) Neut % (Auto) Lymph % (Auto) [place] % (Auto) Eos % (Auto) Baso % (Auto) Neut # (Auto) Lymph # (Auto) [place] # (Auto) Eos # (Auto) Baso # (Auto) WBC Differential Diff Scan Differential Comment Sodium Potassium Chloride Carbon Dioxide Anion Gap BUN Creatinine Estimated GFR POC Glucose 89 Random Glucose Osmolality Calcium Magnesium Total Bilirubin AST ALT Alkaline Phosphatase Troponin I Total Protein Albumin Urine Color Straw Urine Clarity Clear Urine pH 5.0 Ur Specific [place] 1.008 Urine Protein Negative Urine Glucose (UA) Negative Urine Ketones Negative Urine Occult Blood Negative Urine Nitrate Negative Urine Bilirubin Negative Urine Urobilinogen Less than 2 Ur Leukocyte Esterase Negative Urine WBC 1 Hyaline Casts 3 Urine Mucus Few H Micro UA Comment Culture not ind Ur Microscopic Review Not Reportable Urine Culture Comments Culture not ind Urine Osmolality Urine Opiates Screen Ur Barbiturates Screen Ur Amphetamines Screen U Benzodiazepines Scrn Urine Cocaine Screen U Cannabinoids Screen Serum Alcohol - Imaging Impressions Cervical Spine CT 08/05/18 19:45 CONCLUSION: 1. Negative CT Cervical Spine non contrast. Chest X-Ray 08/05/18 19:45 CONCLUSION: No acute cardiopulmonary disease demonstrated. Head CT 08/05/18 19:45 CONCLUSION: 1. Negative CT Head non contrast. . Assessment and Plan - Plan 38-year-old male admitted with intoxication secondary to Listerine ingestion. The patient had mild hypoglycemia on presentation. He was admitted and treated with IV fluid. He was able to eat and IV fluid discontinued. Hyperosmolality. Could be secondary to dehydration. Improved. Acute alcohol intoxication. Chronic alcoholism Alcohol level above 400. IV fluids. Monitor. Thiamine given. Patient is advised to go directly to [facility] to continue rehab and continue care for psychiatric issues. Reported history of bipolar disorder: Patient reports she was previously seen at [facility]. He has not been taking any medications. He is requesting Adderall and Klonopin. Advised the patient to return to [facility] today. Tobacco abuse. Cessation counseling provided Discharge Planning: Discharge patient to home. Patient advised to directly go to [facility] ([facility] for substance abuse rehab and psychiatric care Condition on discharge: Improved Regular Diet as tolerated Ad More activity Rx written: None Follow-up with primary care physician
[2018-08-06 11:41] VITALS: BP 120/68; PULSE 117; RESP 16; TEMP 99.1; O2SAT 94
[2018-08-06 12:11] LABS: Alanine Aminotransferase 31 U/L (12-78); Anion Gap 7 meq/L (5-15); Aspartate Aminotransferase 28 U/L (15-37); Blood Urea Nitrogen 5 mg/dL (7-18); Calcium 7.8 mg/dL (8.5-10.1); Carbon Dioxide 30.5 meq/L (21.0-32.0); Chloride 106 meq/L (98-107); Glomerular Filtration Rate Greater Than 89 mL/min (>89); Glucose,Random 86 mg/dL (74-106); Potassium 3.9 meq/L (3.5-5.1); Sodium 143 meq/L (136-145)
[2018-08-06 12:14] LABS: Alkaline Phosphatase 83 U/L (45-117); Total Protein 5.6 g/dL (6.4-8.2)
--- NOTE | 2018-08-06 19:26 | ECG ---
Date Performed: 08/05/2018 Time Performed: 19:55:06 PTAGE: 38 years EKG: Sinus rhythm NORMAL ECG NO PREVIOUS TRACING DOCTOR: Dorian Bynum Interpretating Date/Time 08/06/2018 19:25:32
== END 2018-08-06 14:28 | disposition home or self-care (01) ==
LOC: NEDA 19:29 → NEPC 19:29 → NEDA 08-06 02:39 → NEPFCDU 08-06 02:53
PROVIDERS: ADMIT Family Medicine; ATTEND Family Medicine